=== PATIENT | male | born 1975 | race Caucasian/White ===

== ENCOUNTER 2023-06-18 21:10 | Emergency (ER) | payer BC ==
[2023-06-18 21:41] VITALS: BP 159/97; PULSE 105; RESP 18; TEMP 98.7; O2SAT 96
[2023-06-18] MEDS ORDERED: Adacel Vial IM ONE ×2 (21:41→21:50)
[2023-06-18] MEDS ORDERED: BACIGUENT PACKET TP ONE (21:46)
--- NOTE | 2023-06-18 21:46 | ERPHSYRPT ---
- History of Present Illness Time Seen by Provider: 06/18/23 21:22 Source: patient Exam Limitations: no limitations Patient Subjective Stated Complaint: pt states he has redness and pain to the top of his rt foot. has been wearing sandals today Triage Nursing Assessment: pt alert and oriented, answers questions approp. pt ambulates into room with limping gait noted. skin warm and dry. redness to top of bilat feet. worse on rt foot. pedal pulses and cap refill wnl bilat. Physician History: 47 years old male presented in the ER with chief complaint of right foot dorsum redness and eroded skin after he had sandals put on and was fixing his son's car. Patient reports sharp shooting burning pain with redness. He applied some Neosporin with no relief. Has some redness on the left foot dorsum as well. No pain in the toes. No known trauma otherwise. Allergies/Adverse Reactions: No Known Drug Allergies Allergy (Verified 06/18/23 21:37) Hx Tetanus, Diphtheria Vaccination/Date Given: Yes Hx Influenza Vaccination/Date Given: No Hx Pneumococcal Vaccination/Date Given: No Immunizations Up to Date: Yes Travel Risk - International Travel Have you traveled outside of the country in past 3 weeks: No - Coronavirus Screening Are you exhibiting any of the following symptoms?: No Close contact with a COVID-19 positive Pt in past 14-21 Days: No - Vaccine Status Have you recieved a Covid-19 vaccination: No - Review of Systems Constitutional: No Symptoms Ears, Nose, & Throat: No Symptoms Respiratory: No Symptoms Cardiac: No Symptoms Abdominal/Gastrointestinal: No Symptoms Genitourinary Symptoms: No Symptoms Musculoskeletal: Injury Skin: Skin Lesions Neurological: No Symptoms Endocrine: No Symptoms Hematologic/Lymphatic: No Symptoms - Past Medical History Pertinent Past Medical History: No - Past Surgical History Past Surgical History: Yes Gastrointestinal: Cholecystectomy - Social History Smoking Status: Never smoker Exposure to second hand smoke: No Drug Use: none Patient Lives Alone: No - Nursing Vital Signs Nursing Vital Signs: Initial Vital Signs Temperature 98.7 F 06/18/23 21:17 Pulse Rate 105 H 06/18/23 21:17 Respiratory Rate 18 06/18/23 21:17 Blood Pressure 159/97 06/18/23 21:17 O2 Sat by Pulse Oximetry 96 06/18/23 21:17 Pain Scale Pain Intensity 7 - Physical Exam General Appearance: no apparent distress, alert Eye Exam: PERRL/EOMI Neck Exam: normal inspection, full range of motion Respiratory Exam: normal breath sounds, lungs clear Cardiovascular Exam: regular rate/rhythm, normal heart sounds Extremity Exam: inflammation (Erythema on the medial dorsum of midfoot with eroded skin. Warm and tender to touch. Intact range of motion at the ankle/toes.), tenderness Neurologic Exam: alert, oriented x 3, cooperative Skin Exam: rash SpO2 Interpretation: normal SpO2: 96 O2 Delivery: Room Air - Progress Progress: pain not gone completely Progress Note: 06/18/23 21:48 47 years old male presented in the ER with chief complaint of right foot dorsum redness and eroded skin after he had sandals put on and was fixing his son's car. Patient reports sharp shooting burning pain with redness. He applied some Neosporin with no relief. Has some redness on the left foot dorsum as well. No pain in the toes. No known trauma otherwise. Has superficial abrasion. Patient was worried about some metal shaving which I do not see. There is no bleeding. This just erythema and reaction secondary to friction from the shoe strap. Offered pain medication which he declined. Tetanus is updated. Do not think needs imaging as does not seem to have any bony tenderness. Bacitracin. Recommended taking Tylenol ibuprofen and outpatient follow-up. Counseled pt/family regarding: diagnosis, need for follow-up Medical Desision Making - Risk of complications The pt has a mod risk of morbidity or mortality based on: Need for prescription drug management - Departure Departure Disposition: Home Clinical Impression: Foot and toe(s), abrasion or friction burn, infected Condition: Stable Critical Care Time: No Referrals: DAMARIS PIZARRO MD [Primary Care Provider] - Follow up with PCP 2 days Instructions: Skin Abrasions (DC) Additional Instructions: Keep it clean and dry. Take Tylenol/ibuprofen as needed for pain. Use soft shoe and avoid friction/rub. Follow-up with primary care for reevaluation. Return to ER for any worsening. Prescriptions: Bacitracin [Bacitraycin Plus] 28 gm TP TID 7 Days #28 gum
[2023-06-18] MEDS ORDERED: BACIGUENT PACKET ONE (21:50)
== END 2023-06-18 22:01 | disposition home or self-care (01) ==
LOC: ED 21:10
DX: S90.811A Abrasion, right foot, initial encounter (principal); L08.9 Local infection of the skin and subcutaneous tissue, unspecified; W49.9XXA Exposure to other inanimate mechanical forces, initial encounter; Z28.310 Unvaccinated for COVID-19; Z23 Encounter for immunization
CPT/HCPCS: 90471; 90715; 99282; A9270-GY

== ENCOUNTER 2024-09-09 06:03 | Day surgery (SDC) | payer BC ==
[2024-09-09] MEDS: Lactated Ringers 1,000 ML IV SCH (06:29)
[2024-09-09] MEDS ORDERED: DIPRIVAN 200 MG/20 ML IV ONE (07:29)
[2024-09-09] MEDS ORDERED: Versed 2 MG/2 ML Injection ONE (07:29)
[2024-09-09] MEDS ORDERED: Xylocaine-Mpf 2% 5 Ml Vial ONE (07:29)
[2024-09-09 08:11] VITALS: TEMP 97.4; O2SAT 96
[2024-09-09 08:20] VITALS: BP 138/78; PULSE 93; RESP 18
--- NOTE | 2024-09-10 08:52 | OP ---
SURGERY DATE/TIME: 09/09/2024 [id number] PREOPERATIVE DIAGNOSIS: Screening exam. POSTOPERATIVE DIAGNOSIS: Normal colon. PROCEDURE: Colonoscopy. SURGEON: Danny Meza MD ANESTHESIA: Medications were given by the anesthesia department. INDICATIONS: The patient is a 49-year-old white male presenting now for screening colonoscopy. The patient was appraised of the risks of the procedure including risk of perforation, phlebitis, untoward reaction to medication, bleeding, and missed lesions. The patient verbalized an understanding and desire to have procedure performed. DESCRIPTION OF PROCEDURE AND FINDINGS: The patient was given medication by the anesthesia department and had continuous pulse oximetry, ECG monitoring, and intermittent blood pressure monitoring during the examination. He was placed in the left lateral decubitus position. Digital rectal examination was performed and revealed normal anal sphincter tone, no masses, and a normal prostate. The flexible Olympus videocolonoscope was used to intubate the rectum. A view of the colon was developed sequentially to the cecum. Upon insertion and withdrawal, including retroflexed view in the rectum, no mucosal lesions were encountered. The scope was removed. The patient tolerated the procedure well and was sent back to outpatient recovery in good condition. The prep was noted to be fair.
== END 2024-09-09 08:23 | disposition home or self-care (01) ==
LOC: SDC 06:03
PROVIDERS: ATTEND Family Medicine
DX: Z12.11 Encounter for screening for malignant neoplasm of colon (principal)
CPT/HCPCS: 93005; J2250; J2704